=== PATIENT | male | born 1985 | race African-American/Black ===

== ENCOUNTER 2017-11-10 10:55 | Emergency (ER) | payer OTHER ==
[~2017-11-10] VITALS: Ht 170.2 cm; Wt 64.4 kg
[2017-11-10] MEDS ORDERED: NAPROXEN375 M2 ORAL (11:58)
--- NOTE | 2017-11-10 11:58 | Emergency Room Report ---
History of Present Illness General Chief Complaint: Lower Extremity Injury Source: Patient Present Illness HPI 32M c/o pain right knee. He twisted running on the sand. He has had prior right knee issues, ACL, healed without surgery. He has used his mom's Norcos and ran out. Did not use NSAIDs. No fever, no other trauma/injury. No other complaint. Allergies: Coded Allergies: No Known Allergies (Unverified , 11/10/17) Nursing Documentation-[facility] Past Medical History: No History, Except For Review of Systems Constitutional: Reports: no symptoms Eye: Reports: no symptoms ENT: Reports: no symptoms Respiratory: Reports: no symptoms Cardiovascular: Reports: no symptoms Gastrointestinal: Reports: no symptoms Genitourinary: Reports: no symptoms Musculoskeletal: Reports: see HPI, joint pain Skin: Reports: no symptoms Psychiatric: Reports: no symptoms Neurological: Reports: no symptoms Endocrine: Reports: no symptoms Hematologic/Lymphatic: Reports: no symptoms Allergic: Reports: no symptoms All Other Systems: negative except mentioned in HPI Physical Exam Vital Signs Date Time Temp Pulse Resp B/P (MAP) Pulse Ox O2 Delivery O2 Flow Rate FiO2 11/10/17 11:06 98.8 59 16 144/82 99 Room Air 98.8 Sp02 EP Interpretation: reviewed, normal General Appearance: normal inspection, well appearing, no apparent distress, alert, GCS 15, non-toxic Head: normocephalic, atraumatic Eyes: bilateral eye normal inspection, bilateral eye PERRL, bilateral eye EOMI ENT: normal ENT inspection, hearing grossly normal, normal pharynx, no angioedema, normal voice, moist mucus membranes Neck: normal inspection, full range of motion, supple, no meningismus, no bony tend Respiratory: normal inspection, lungs clear, normal breath sounds, no rhonchi, no respiratory distress, no retraction, no accessory muscle use, no wheezing Cardiovascular #1: normal inspection, regular rate, rhythm, no edema Gastrointestinal: normal inspection, normal bowel sounds, non tender, soft, no mass, non-distended Musculoskeletal: gait/station normal, normal range of motion, other - mild tenderness, mild anterior laxity (chronic) Neurologic: normal inspection, alert, oriented x3, responsive, motor strength/ tone normal Psychiatric: normal inspection, judgement/insight normal, memory normal Suicide Risk Assessment: Suicidal Ideation: No Had intent to initiate attempt: No Pt's plan for suicide attempt: No Has means to complete attempt: No Skin: normal inspection, normal color, no rash, warm/dry Medical Decision Making Diagnostic Impression: Primary Impression: Knee ligamentous laxity ER Course counseled patient regarding opiates; advised nsaids, pt. understands Last Vital Signs Date Time Temp Pulse Resp B/P (MAP) Pulse Ox O2 Delivery O2 Flow Rate FiO2 11/10/17 11:06 98.8 59 16 144/82 99 Room Air 98.8 Disposition: HOME, SELF-CARE Condition: Stable Referrals: NOT CHOSEN IPA/,REFERRING (PCP) Patient Instructions: Knee Sprain Cruz Gray M.D. Nov 10, 2017 11:57
[2017-11-10 12:37] VITALS: BP 144/82
== END 2017-11-10 12:00 | disposition home or self-care (01) ==
LOC: EMR 11:44
DX: M23.8X1 Other internal derangements of right knee (principal); M25.561 Pain in right knee
CPT/HCPCS: 99282

== ENCOUNTER 2018-03-04 21:42 | Emergency (ER) | payer OTHER ==
[~2018-03-04] VITALS: Ht 170.2 cm; Wt 65.8 kg
[~2018-03-04 21:42] MED LIST: NAPROXEN375 M2 ORAL
[2018-03-04 21:57] VITALS: BP 144/87
--- NOTE | 2018-03-04 21:58 | NUR ---
ED Nurse Note: pt walked in req injection med instead of po med for his std. Pt states he was dx Non-gonococcal urethritis a week ago and was taking cipro but had vomiting episode. Pt states he has some itching and discomfort with clear discharge. AA&ox4 gcs=15, skin warm and dry, resp even and unlabored, -n/v/d, ambulates w/ steady gait, will continue to monitor.
[2018-03-04] MEDS ORDERED: DOXYCYCLINE MO100 MG ORAL (22:13)
[2018-03-04] MEDS ORDERED: Lidocaine 1% MPF 10mg/ml 5ml INJ ONE (22:15)
--- NOTE | 2018-03-04 22:17 | Emergency Room Report ---
History of Present Illness General Chief Complaint: Male Urogenital Problems Source: Patient Present Illness HPI Patient is a 33-year-old male presented after increased urethral discharge. Patient had recent treatment for nongonococcal urethritis. Patient was noted to have increased discharge for approximately the past 2-3 days. Patient had previously been noted to have similar symptoms and had been treated with oral azithromycin. Patient stated he vomited up the medication. Patient had no complaints of testicular swelling or blood in his urine. He denies any other locations of symptoms. Allergies: Coded Allergies: No Known Allergies (Unverified , 03/04/18) Patient History Past Medical History: see triage record Reviewed Nursing Documentation: PMH: Agreed; PSxH: Agreed Nursing Documentation-PMH Past Medical History: No Stated History Review of Systems All Other Systems: negative except mentioned in HPI Physical Exam Vital Signs Date Time Temp Pulse Resp B/P (MAP) Pulse Ox O2 Delivery O2 Flow Rate FiO2 03/04/18 21:53 98.1 65 18 144/87 100 Room Air General Appearance: well appearing, no apparent distress, alert, GCS 15, non- toxic Head: normocephalic, atraumatic ENT: hearing grossly normal, normal voice Neck: full range of motion, supple Respiratory: no respiratory distress, speaking full sentences Cardiovascular #1: normal inspection Gastrointestinal: normal inspection Musculoskeletal: normal inspection, no calf tenderness Neurologic: normal inspection, alert, oriented x3, responsive, normal gait Psychiatric: mood/affect normal Skin: no rash Medical Decision Making Diagnostic Impression: Primary Impression: Penile discharge ER Course Patient presented for dysuria. Differential diagnosis included was not limited to gonorrhea, chlamydia, appendicitis, urinary tract infection, urethritis, herpes among others. Patient has a benign exam and does not appear to require any further imaging or laboratory testing at this time. Patient's history is consistent with a sexually transmitted infection. Patient will be empirically treated for urethritis. Patient was advised to follow-up with primary care physician for recheck. Patient was to return if he had any worsening of condition. Last Vital Signs Date Time Temp Pulse Resp B/P (MAP) Pulse Ox O2 Delivery O2 Flow Rate FiO2 03/04/18 21:57 98.1 71 18 144/87 100 Room Air Status: improved Disposition: HOME, SELF-CARE Condition: Stable Scripts Doxycycline Monohydrate* (DOXYCYCLINE MONOHYDRATE*) 100 Mg Capsule 100 MG ORAL Q12H, #14 CAP 0 Refills Prov: Obed Lowe MD 03/04/18 Patient Instructions: Urethritis, Adult Obed Lowe MD Mar 04, 2018 22:17
[2018-03-04 22:22] VITALS: BP 128/78
--- NOTE | 2018-03-04 22:22 | NUR ---
ED Nurse Note: pt discharge instruction provided with prescription, pt education done, pt advised to follow up with pcp in 2-3days, pt verbalized understanding and agrees with plan, id band removed.
== END 2018-03-04 22:22 | disposition home or self-care (01) ==
LOC: EMR 22:15
DX: R36.9 Urethral discharge, unspecified (principal); R30.0 Dysuria
CPT/HCPCS: 96372; 99283; J0696